=== PATIENT | male | born 1970 | race Asian ===

== ENCOUNTER 2021-09-12 03:16 | Emergency (ER) | payer OTHER ==
[~2021-09-12] VITALS: Ht 180.3 cm; Wt 78.0 kg
[2021-09-12 03:46] LABS: PLATELET COUNT 289 K/uL (142-355)
[2021-09-12 03:50] LABS: POTASSIUM 4.2 mmol/L (3.6-5.2)
[2021-09-12 04:57] VITALS: BP 175/90; TEMP 98
[2021-09-12] MEDS ORDERED: ALPR0.2566 PO (12:20)
[2021-09-12] MEDS ORDERED: AMLODIPINE BESYLATE PO (12:21)
[2021-09-12] MEDS ORDERED: FARXIGA10 MG PO (12:22)
[2021-09-12] MEDS ORDERED: DIVA250T2 PO (12:22)
[2021-09-12] MEDS ORDERED: MELATONIN3 M1 PO (12:23)
[2021-09-12] MEDS ORDERED: PAROXETINE40 MG PO (12:24)
[2021-09-12] MEDS ORDERED: INSU300I SC (12:29)
[2021-09-12] MEDS ORDERED: TAMSULOSIN HYD0.4 MG PO (12:29)
[2021-09-12] MEDS ORDERED: VITAMIN B-12500 MCG PO (12:31)
[2021-09-12] MEDS ORDERED: ZINC220 MG PO (12:32)
[2021-09-12] MEDS ORDERED: METFORMIN HYD1000 MG PO (12:33)
[2021-09-12] MEDS ORDERED: GABA400C2 PO (12:34)
[2021-09-12] MEDS ORDERED: INSU100P SC (12:35)
[2021-09-12] MEDS ORDERED: TRAM50TA PO (12:36)
[2021-09-12] MEDS ORDERED: MAPAP500 MG PO (12:39)
== END 2021-09-12 04:57 | disposition home or self-care (01) ==
LOC: ED 03:21
PROVIDERS: Emergency Medicine
DX: F39 Unspecified mood [affective] disorder (principal); Z11.52 Encounter for screening for COVID-19; Z04.6 Encounter for general psychiatric examination, requested by authority; N39.0 Urinary tract infection, site not specified
CPT/HCPCS: 36415; 80053; 81000; 85008; 85027; 87086; 87088; 87635; 93005; 99283; U0003